=== PATIENT | female | born 1995 | race African-American/Black ===

== ENCOUNTER 2020-02-24 16:40 | Emergency (ER) | payer MEDICAID ==
[~2020-02-24] VITALS: Ht 167.6 cm; Wt 70.0 kg
[2020-02-24] MEDS ORDERED: ALBUTEROL (0.083%) 2.5MG/3ML NEB HHN STA (17:08)
[2020-02-24] MEDS ORDERED: METHYLPREDNISOLONE SOD SUCC 125 MG/2 ML VIAL IV STA (17:08)
[2020-02-24] MEDS ORDERED: IPRATROPIUM BROMIDE (0.02%) 0.5MG/2.5ML NEB HHN STA (17:08)
[2020-02-24] MEDS ORDERED: ACETAMINOPHEN 325MG TABLET PO ONE (18:45)
[2020-02-24] MEDS ORDERED: ACETAMINOPHEN 160 MG/5 ML UD CUP PO ONE (20:00)
[2020-02-24] MEDS ORDERED: ACETAMINOPHEN 650MG/20.3ML UDC PO ONE (20:30)
[2020-02-24 20:36] LABS: HEMATOCRIT. 44.3 % (36.0-48.0); HEMOGLOBIN. 14.1 g/dL (12.0-16.0); MEAN CORPUSCULAR HEMOGLOBIN 25.2 pg (28.0-32.0); MEAN CORPUSCULAR VOLUME 79.4 fL (81.0-99.0); MEAN PLATELET VOLUME 8.9 fl (7.4-10.4); PLATELET 309 x1000/uL (130-400); RED BLOOD CELL COUNT 5.58 mill/uL (4.2-5.4); RED CELL DISTRIBUTION WIDTH 14.9 % (11.6-14.6)
[2020-02-24 20:43] LABS: CHLORIDE 108 mEq/L (98-107)
[2020-02-24] MEDS ORDERED: FLUT12AE3 INH (21:23)
[2020-02-24] MEDS ORDERED: P50 MT (21:23)
[2020-02-24] MEDS ORDERED: EPIN0.3P3 IM (21:23)
[2020-02-24] MEDS ORDERED: ALBU18HF2 INH (21:23)
[2020-02-24 21:35] VITALS: BP 117/79
[2020-02-24 23:14] LABS: PLATELET ESTIMATE NORMAL
== END 2020-02-24 21:35 | disposition home or self-care (01) ==
LOC: ER 16:40
DX: J45.901 Unspecified asthma with (acute) exacerbation (principal)
CPT/HCPCS: 36415; 71045; 80048; 81025; 84484; 85025; 85379; 93005; 94644; 96374; 99285; J2930; Z7610